=== PATIENT | male | born 1940 | race Caucasian/White ===

== ENCOUNTER 2017-02-05 11:24 | Observation (INO) | payer MEDICARE, OTHER ==
[~2017-02-05] VITALS: Ht 172.7 cm; Wt 75.0 kg
[2017-02-05] VITALS (7 sets, daily range): BP systolic 138–191; BP diastolic 74–81; PULSE 66–94; RESP 17–20; TEMP 97.6–98; O2SAT 93–99
--- NOTE | 2017-02-05 11:36 | PD ---
Physical Exam Date Seen by Provider: Feb 05, 2017 Time Seen by Provider: 11:33 Narrative 76 y/o male presents with c/o chest pain and Left arm numbness off and on 6-7 times in the last month. + Diaphoresis. No SOB. No previous Cardiac Hx. No pain currently. Last had it yesterday. Has been belching more with it. Vital signs reviewed. Patient stable. Awaiting Bed placement. Cardiac Protocols. Data Data Last Documented VS Vital Signs Date Time Temp Pulse Resp B/P Pulse Ox O2 Delivery O2 Flow Rate FiO2 02/05/17 11:27 97.6 94 20 180/81 98 MDM Medical Record Reviewed: Yes Supervised Visit with JENNI: Yes Condition: Stable Ko Grant Feb 05, 2017 11:36
[2017-02-05 12:13] LABS: AUTOMATED NEUTROPHIL # 5.5 TH/MM3 (1.8-7.7); BASOPHIL # 0.1 TH/MM3 (0-0.2); BASOPHIL % 0.8 % (0.0-2.0); EOSINOPHIL # 0.1 TH/MM3 (0-0.4); EOSINOPHIL % 1.1 % (0.0-4.0); HEMATOCRIT 43.3 % (39.0-51.0); HEMO FLAGS DIFF FINAL; LYMPH % 15.6 % (9.0-44.0); LYMPHOCYTE # 1.1 TH/MM3 (1.0-4.8); MEAN CELL VOLUME 91.7 FL (80.0-100.0); MEAN CORPUSCULAR HEMOGLOBIN 32.6 PG (27.0-34.0); MEAN CORPUSCULAR HGB CONC 35.6 % (32.0-36.0); MONO % 5.9 % (0.0-8.0); NEUT % 76.6 % (16.0-70.0); PLATELET COUNT 238 TH/MM3 (150-450); RED BLOOD COUNT 4.73 MIL/MM3 (4.50-5.90); RED CELL DISTRIBUTION WIDTH 13.7 % (11.6-17.2); WHITE BLOOD COUNT 7.2 TH/MM3 (4.0-11.0)
[2017-02-05 12:24] LABS: APTT (PATIENT) 25.8 SEC (24.3-30.1); INTERNATIONAL NORMALIZED RATIO 0.9 RATIO; PROTHROMBIN TIME - PATIENT 10.4 SEC (9.8-11.6)
[2017-02-05 12:33] LABS: ANION GAP 6 MEQ/L (5-15); AST (GOT) 17 U/L (15-37); BICARBONATE 28.1 MEQ/L (21.0-32.0); BLOOD UREA NITROGEN 15 MG/DL (7-18); CHLORIDE 101 MEQ/L (98-107); GLOMERULAR FILTRATION RATE 71 ML/MIN (>89); MAGNESIUM 2.3 MG/DL (1.5-2.5); POTASSIUM 4.6 MEQ/L (3.5-5.1); SODIUM (NA) 135 MEQ/L (136-145)
[2017-02-05 12:35] LABS: ALT (GPT) 21 U/L (12-78)
[2017-02-05 12:38] LABS: ALKALINE PHOSPHATASE 77 U/L (45-117); TOTAL BILIRUBIN ADULT 0.5 MG/DL (0.2-1.0)
[2017-02-05 12:44] LABS: CREATINE KINASE 63 U/L (39-308)
--- NOTE | 2017-02-05 14:35 | RADRPT ---
EXAM DATE/TIME: 02/05/2017 14:05 [facility] COMPARISON: No previous studies available for comparison. INDICATIONS : Chest tightness and left arm numbness. MEDICAL HISTORY : None. SURGICAL HISTORY : None. ENCOUNTER: Initial ACUITY: 1 month PAIN SCORE: 3/10 LOCATION: Left chest FINDINGS: PA and lateral views of the chest demonstrate the lungs to be symmetrically aerated without evidence of mass, infiltrate or effusion. The cardiomediastinal contours are unremarkable. 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 CONCLUSION: No acute disease. Dallas Rondon MD FACR on February 05, 2017 at 14:33 Board Certified Radiologist. This report was verified electronically.
[2017-02-05] MEDS ORDERED: ASPI81CH37 PO (15:23)
[2017-02-05] MEDS ORDERED: VITATAB56 PO (15:23)
[2017-02-05] MEDS ORDERED: LIPI20TA PO (15:23)
--- NOTE | 2017-02-05 15:53 | PD ---
HPI Chief Complaint: Chest Pain Time Seen by Provider: 15:44 Travel History International Travel<30 days: No Contact w/Intl Traveler<30days: No Traveled to known affect area: No History of Present Illness HPI Patient is a 76-year-old male presenting to emergency Department for evaluation of chest pain. Patient states over the last 4-5 weeks he's had 6-7 episodes of chest pressure with radiation to his left arm, the symptoms are accompanied by diaphoresis. Activity does not exacerbate pain patient states pain comes on at rest and when he exerted himself. He denies any nausea, vomiting, neck pain, back pain. He denies any previous stress test. Patient states he called his doctor's office this morning and was advised to come to the emergency department. His past medical history significant for hyperlipidemia and a AAA which he states they are monitoring. Patient is currently resting comfortably and is pain free. PFSH Past Medical History AAA: Yes High Cholesterol: Yes Diminished Hearing: No Tetanus Vaccination: > 5 Years Influenza Vaccination: No Past Surgical History Abdominal Surgery: Yes (hernia repair) Cholecystectomy: Yes Social History Alcohol Use: Yes (ocassionally) Tobacco Use: Yes (1 pack per day) Substance Use: No (pt denies ) Allergies-Medications (Allergen,Severity, Reaction): Coded Allergies: No Known Allergies (Unverified , 02/05/17) Reported Meds & Prescriptions Reported Meds & Active Scripts Active Reported Vitamin D-400 (Cholecalciferol) 400 Unit Tab 400 Units PO HS Aspirin Low Dose (Aspirin) 81 Mg Chew 81 Mg PO DAILY Lipitor (Atorvastatin Calcium) 20 Mg Tab 20 Mg PO HS Review of Systems Except as stated in HPI: all other systems reviewed are Neg Cardiovascular: Positive: Chest Pain or Discomfort, Diaphoresis, No: Dyspnea on exertion Respiratory: No: Shortness of Breath Gastrointestinal: No: Nausea, Vomiting, Abdominal Pain Physical Exam Narrative GENERAL: Well-developed, well-nourished, alert elderly male. Resting comfortably in no acute distress. SKIN: Warm and dry. HEAD: Atraumatic. Normocephalic. EYES: Pupils equal and round. No scleral icterus. No injection or drainage. ENT: No nasal bleeding or discharge. Mucous membranes pink and moist. NECK: Trachea midline. No JVD. CARDIOVASCULAR: Regular rate and rhythm. RESPIRATORY: No accessory muscle use. Clear to auscultation. Breath sounds equal bilaterally. GASTROINTESTINAL: Abdomen soft, non-tender, nondistended. Hepatic and splenic margins not palpable. MUSCULOSKELETAL: Extremities without clubbing, cyanosis, or edema. No obvious deformities. NEUROLOGICAL: Awake and alert. No obvious cranial nerve deficits. Motor grossly within normal limits. Five out of 5 muscle strength in the arms and legs. Normal speech. PSYCHIATRIC: Appropriate mood and affect; insight and judgment normal. Data Data Last Documented VS Vital Signs Date Time Temp Pulse Resp B/P Pulse Ox O2 Delivery O2 Flow Rate FiO2 02/05/17 15:24 73 17 99 Room Air 02/05/17 11:27 97.6 180/81 Orders Electrocardiogram (02/05/17 11:36) Ckmb (Isoenzyme) Profile (02/05/17 11:36) Complete Blood Count With Diff (02/05/17 11:36) Comprehensive Metabolic Panel (02/05/17 11:36) Magnesium (Mg) (02/05/17 11:36) Prothrombin Time / Inr (Pt) (02/05/17 11:36) Act Partial Throm Time (Ptt) (02/05/17 11:36) Troponin I (02/05/17 11:36) Chest, Pa & Lat (02/05/17 ) Admit Order (Ed Use Only) (02/05/17 15:43) Labs Laboratory Tests Test 02/05/17 11:50 White Blood Count 7.2 TH/MM3 Red Blood Count 4.73 MIL/MM3 Hemoglobin 15.4 GM/DL Hematocrit 43.3 % Mean Corpuscular Volume 91.7 FL Mean Corpuscular Hemoglobin 32.6 PG Mean Corpuscular Hemoglobin 35.6 % Concent Red Cell Distribution Width 13.7 % Platelet Count 238 TH/MM3 Mean Platelet Volume 7.3 FL Neutrophils (%) (Auto) 76.6 % Lymphocytes (%) (Auto) 15.6 % Monocytes (%) (Auto) 5.9 % Eosinophils (%) (Auto) 1.1 % Basophils (%) (Auto) 0.8 % Neutrophils # (Auto) 5.5 TH/MM3 Lymphocytes # (Auto) 1.1 TH/MM3 Monocytes # (Auto) 0.4 TH/MM3 Eosinophils # (Auto) 0.1 TH/MM3 Basophils # (Auto) 0.1 TH/MM3 CBC Comment DIFF FINAL Differential Comment Prothrombin Time 10.4 SEC Prothromb Time International 0.9 RATIO Ratio Activated Partial 25.8 SEC Thromboplast Time Sodium Level 135 MEQ/L Potassium Level 4.6 MEQ/L Chloride Level 101 MEQ/L Carbon Dioxide Level 28.1 MEQ/L Anion Gap 6 MEQ/L Blood Urea Nitrogen 15 MG/DL Creatinine 1.01 MG/DL Estimat Glomerular Filtration 71 ML/MIN Rate Random Glucose 104 MG/DL Calcium Level 9.1 MG/DL Magnesium Level 2.3 MG/DL Total Bilirubin 0.5 MG/DL Aspartate Amino Transf 17 U/L (AST/SGOT) Alanine Aminotransferase 21 U/L (ALT/SGPT) Alkaline Phosphatase 77 U/L Total Creatine Kinase 63 U/L Troponin I 0.04 NG/ML Total Protein 8.5 GM/DL Albumin 4.1 GM/DL MDM Medical Decision Making Medical Screen Exam Complete: Yes Emergency Medical Condition: Yes Medical Record Reviewed: Yes Interpretation(s) Last Impressions Chest X-Ray 02/05/17 0000 Signed Impressions: Service Date/Time: Sunday, February 05, 2017 14:05 - CONCLUSION: No acute disease. Dallas Rondon MD FACR Laboratory Tests Test 02/05/17 11:50 White Blood Count 7.2 TH/MM3 Red Blood Count 4.73 MIL/MM3 Hemoglobin 15.4 GM/DL Hematocrit 43.3 % Mean Corpuscular Volume 91.7 FL Mean Corpuscular Hemoglobin 32.6 PG Mean Corpuscular Hemoglobin 35.6 % Concent Red Cell Distribution Width 13.7 % Platelet Count 238 TH/MM3 Mean Platelet Volume 7.3 FL Neutrophils (%) (Auto) 76.6 % Lymphocytes (%) (Auto) 15.6 % Monocytes (%) (Auto) 5.9 % Eosinophils (%) (Auto) 1.1 % Basophils (%) (Auto) 0.8 % Neutrophils # (Auto) 5.5 TH/MM3 Lymphocytes # (Auto) 1.1 TH/MM3 Monocytes # (Auto) 0.4 TH/MM3 Eosinophils # (Auto) 0.1 TH/MM3 Basophils # (Auto) 0.1 TH/MM3 CBC Comment DIFF FINAL Differential Comment Prothrombin Time 10.4 SEC Prothromb Time International 0.9 RATIO Ratio Activated Partial 25.8 SEC Thromboplast Time Sodium Level 135 MEQ/L Potassium Level 4.6 MEQ/L Chloride Level 101 MEQ/L Carbon Dioxide Level 28.1 MEQ/L Anion Gap 6 MEQ/L Blood Urea Nitrogen 15 MG/DL Creatinine 1.01 MG/DL Estimat Glomerular Filtration 71 ML/MIN Rate Random Glucose 104 MG/DL Calcium Level 9.1 MG/DL Magnesium Level 2.3 MG/DL Total Bilirubin 0.5 MG/DL Aspartate Amino Transf 17 U/L (AST/SGOT) Alanine Aminotransferase 21 U/L (ALT/SGPT) Alkaline Phosphatase 77 U/L Total Creatine Kinase 63 U/L Troponin I 0.04 NG/ML Total Protein 8.5 GM/DL Albumin 4.1 GM/DL Vital Signs Date Time Temp Pulse Resp B/P Pulse Ox O2 Delivery O2 Flow Rate FiO2 02/05/17 15:24 73 17 99 Room Air 02/05/17 11:27 97.6 94 20 180/81 98 Differential Diagnosis ACS versus USA versus metabolic abnormality versus AAA versus other Narrative Course Patient is 76-year-old male presenting for evaluation of chest pain. Patient's vital signs are stable, IV access established, patient placed on telemetry monitoring and continuous pulse oximetry. Patient was protocoled in triage, labs and imaging were reviewed. Patient is currently pain-free. CBC is unremarkable Chemistry with no acute findings Troponin 0.04 Coags are unremarkable Chest x-ray read by radiologist shows no acute disease. EKG read by my attending physician shows no acute ST changes. Ultrasound the aorta ordered and pending. Ultrasound of the aorta read by radiologist reads distal aorta is not well visualized, no evidence of aneurysm in visualized portions. Patient placed in the chest pain center, he is agreeable. Admitting orders place. Diagnosis Primary Impression: Chest pain Qualified Code: R07.9 - Chest pain, unspecified type Admitting Information Admitting Physician Requests: Observation Condition: Stable Leslee Abbasi Feb 05, 2017 15:53
[2017-02-05] MEDS ORDERED: NITROGLYCERIN 0.4 MG SL 25 TABS/BTL SL PRN (16:30)
[2017-02-05] MEDS ORDERED: ACETAMINOPHEN 500 MG CPLT PO PRN (16:30)
[2017-02-05] MEDS ORDERED: ONDANSETRON HCL 4 MG/2 ML VIAL IV PRN (16:30)
[2017-02-05] MEDS ORDERED: SODIUM CHLORIDE 0.9% FLUSH 10 ML FLUSH IV FLUSH PRN (16:30)
--- NOTE | 2017-02-05 17:39 | RADRPT ---
EXAM DATE/TIME: 02/05/2017 16:27 [facility] COMPARISON: No previous studies available for comparison. INDICATIONS : History of aneurysm. MEDICAL HISTORY : Aneurysm, abdominal. Hypercholesterolemia. SURGICAL HISTORY : Cholecystectomy. Hernia repair. ENCOUNTER: Initial ACUITY: > 1 year PAIN SCORE: 0/10 LOCATION: Abdomen. MEASUREMENTS: (AP x TRANSVERSE) PROXIMAL: 2.4 x 3.0 cm MID: 2.7 x 3.4 cm DISTAL: Non visualized. RIGHT ILIAC: Non visualized. LEFT ILIAC: Non visualized. FINDINGS: AORTA: No significant atherosclerotic disease. Doppler evaluation within normal limits. IVC: Within normal limits. CONCLUSION: Distal aorta is not well-visualized. No evidence of aneurysm in visualized portions Travis Morris MD on February 05, 2017 at 17:36 Board Certified Radiologist. This report was verified electronically.
--- NOTE | 2017-02-05 18:24 | HHI.HP ---
HPI Primary Care Physician Dr. 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 Called his PCP with symptoms and directed to come to ER. Onset 56 weeks ago. Location substernal described as a gradual pressure with radiation to left arm. Duration 35 minutes. Nonexertional, always occurring at rest. Associated symptoms include shortness of breath and diaphoresis. Denies nausea or vomiting. No known precipitating or relieving factors. Review of Systems General: No fatigue, fever, chills, recent use of antibiotics, or recent illness. Has been in his general state of health. HEENT: No GOSS, no vision changes CV: As stated above. No current chest pain or pressure. Denies intermittent leg pain with ambulation. Reports occasional nocturnal leg cramping. RESP: No SOB GI: No nausea, vomiting, bowel changes, diarrhea, constipation, pain, melena, or blood in the stool. No change in appetite, no unintentional weight gain or weight loss. : No dysuria, urgency, or frequency. 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 Pozo, reports size of AAA 3cm-stable and unchanged) Past Surgical History Cholecystectomy, hernia repair Reported Medications Active Reported Vitamin D-400 (Cholecalciferol) 400 Unit Tab 400 Units PO HS Aspirin Low Dose (Aspirin) 81 Mg Chew 81 Mg PO DAILY Lipitor (Atorvastatin Calcium) 20 Mg Tab 20 Mg PO HS Fish Oil daily Active Ordered Medications Current Medications Medications (Trade) Dose Ordered Sig/Verito Route Start Time Stop Time Status Last Admin (NS Flush) 2 ml UNSCH PRN IV FLUSH 02/05/17 16:30 (NS Flush) 2 ml BID IV FLUSH 02/05/17 21:00 (Tylenol) 500 mg Q4H PRN PO 02/05/17 16:30 (Zofran Inj) 4 mg Q6H PRN IV 02/05/17 16:30 (Nitrostat Sl) 0.4 mg Q5M PRN SL 02/05/17 16:30 (Aspirin) 325 mg DAILY PO 02/06/17 09:00 Family History Noncontributory for early onset cardiovascular disease Social History No known hypertension or diabetes. Taken appropriate statin therapy for PVD. Lifelong smoker since age 15, currently smokes 25 cigarettes/daily. Drinks 16 beers/weekly. Denies any illicit drug use. Retired staff software engineer. , endorses staying active. Past cardiac testing None. Denies every having a cardiac catheterization. Physical Exam Vital Signs Vital Signs Date Time Temp Pulse Resp B/P Pulse Ox O2 Delivery O2 Flow Rate FiO2 02/05/17 16:00 97.8 66 17 140/74 99 Room Air 02/05/17 15:24 73 17 99 Room Air 02/05/17 11:27 97.6 94 20 180/81 98 Physical Exam GENERAL: Alert WN, WD, NAD, male HEAD: NC, AT NECK: Supple, no masses, trachea midline CV: RRR, no murmur, rub, gallop, no JVD, S1-S2 no S3-S4. No carotid bruits. RESP: Rhonchi throughout bilateral, intermittent, faint, expiratory wheeze. No crackles. Symmetrical chest rise, nonlabored, able to speak in full sentences ABD: Soft, NT, ND, no masses, positive bowel tones BACK: No scoliosis EXT: Pulses +2 PT and PP, no dependent edema MS: Normal tone 4 extremities, nontender, full range of motion, right first and second digit contracture of proximal interphalangeal joints NEURO: CN II through CN XII grossly intact, motor strength 5/5 PSYCH: A+O 3, appropriate speech, appropriate mood and affect, insight and judgment SKIN: Normal turgor, normal texture, solar damage, no lesions, no rashes, sluggish cap refill, decrease bilateral lower extremity hair distribution Laboratory Laboratory Tests Test 02/05/17 11:50 White Blood Count 7.2 Red Blood Count 4.73 Hemoglobin 15.4 Hematocrit 43.3 Mean Corpuscular Volume 91.7 Mean Corpuscular Hemoglobin 32.6 Mean Corpuscular Hemoglobin 35.6 Concent Red Cell Distribution Width 13.7 Platelet Count 238 Mean Platelet Volume 7.3 Neutrophils (%) (Auto) 76.6 Lymphocytes (%) (Auto) 15.6 Monocytes (%) (Auto) 5.9 Eosinophils (%) (Auto) 1.1 Basophils (%) (Auto) 0.8 Neutrophils # (Auto) 5.5 Lymphocytes # (Auto) 1.1 Monocytes # (Auto) 0.4 Eosinophils # (Auto) 0.1 Basophils # (Auto) 0.1 CBC Comment DIFF FINAL Differential Comment Prothrombin Time 10.4 Prothromb Time International 0.9 Ratio Activated Partial 25.8 Thromboplast Time Sodium Level 135 Potassium Level 4.6 Chloride Level 101 Carbon Dioxide Level 28.1 Anion Gap 6 Blood Urea Nitrogen 15 Creatinine 1.01 Estimat Glomerular Filtration 71 Rate Random Glucose 104 Calcium Level 9.1 Magnesium Level 2.3 Total Bilirubin 0.5 Aspartate Amino Transf 17 (AST/SGOT) Alanine Aminotransferase 21 (ALT/SGPT) Alkaline Phosphatase 77 Total Creatine Kinase 63 Troponin I 0.04 Total Protein 8.5 Albumin 4.1 Result Diagram: 02/05/17 1150 02/05/17 1150 Imaging Last Impressions Chest X-Ray 02/05/17 0000 Signed Impressions: Service Date/Time: Sunday, February 05, 2017 14:05 - CONCLUSION: No acute disease. Dallas Rondon MD FACR Aorta Ultrasound 02/05/17 0000 Signed Impressions: Service Date/Time: Sunday, February 05, 2017 16:27 - CONCLUSION: Distal aorta is not well-visualized. No evidence of aneurysm in visualized portions Travis Morris MD Course EKG First-degree AV block, normal sinus rhythm, normal axis, minimal ST depression in V3-V4, no specific t wave changes Assessment and Plan Assessment and Plan #1 Chest painadmitted to chest pain center. Will rule out with 3 sets of EKGs , cardiac enzymes, and monitor overnight. Will be seen and evaluated by Dr. Tika Hilliard in a.m. Discussed the likelihood of further cardiac stress testing in a.m. if he rules out with lab and EK, Patient and , who is at bedside, agreeable to plan of care. #2 AAA-stable, no dissection. Discussed importance of tight blood pressure control, continue statin therapy, smoking sensation, and following up with Dr. Pozo as previously instructed. #3 Tobacco usestrongly encouraged and stressed the importance of tobacco sensation. Encouraged him to quit smoking. #4 PVD-continue statin, smoking cessation Tyra Cage Feb 05, 2017 18:24
[2017-02-05] MEDS: SODIUM CHLORIDE 0.9% FLUSH 10 ML FLUSH IV FLUSH SCH (20:27)
[2017-02-05] MEDS ORDERED: ATORVASTATIN 20 MG TAB PO SCH (21:00)
[2017-02-06 00:38] VITALS: BP 152/70; PULSE 83; RESP 18; TEMP 97.7; O2SAT 95
[2017-02-06 03:30] VITALS: BP 117/58; PULSE 85; RESP 17; TEMP 97.8; O2SAT 94
[2017-02-06 08:13] VITALS: BP 138/67; PULSE 88; RESP 20; TEMP 97.9; O2SAT 96
[2017-02-06 08:15] VITALS: PULSE 87
[2017-02-06] MEDS: SODIUM CHLORIDE 0.9% FLUSH 10 ML FLUSH IV FLUSH SCH (08:17)
--- NOTE | 2017-02-06 08:24 | EKG ---
Date Performed: 02/05/2017 Time Performed: 21:36:44 PTAGE: 76 years EKG: Sinus rhythm WITH FIRST DEGREE AV BLOCK NONSPECIFIC ST & T-WAVE ABNORMALITY ABNORMAL ECG Since PREVIOUS TRACING , no significant change noted PREVIOUS TRACIN02/05/2017 21.01 DOCTOR: Tika Hilliard Interpretating Date/Time 02/06/2017 08:22:57
--- NOTE | 2017-02-06 08:25 | EKG ---
Date Performed: 02/05/2017 Time Performed: 17:53:57 PTAGE: 76 years EKG: Sinus rhythm WITH FIRST DEGREE AV BLOCK MODERATE INTRAVENTRICULAR CONDUCTION DELAY ABNORMAL ECG Since PREVIOUS TRACING , no significant change noted PREVIOUS TRACIN02/05/2017 11.40 DOCTOR: Tika Hilliard Interpretating Date/Time 02/06/2017 08:24:38
--- NOTE | 2017-02-06 08:25 | EKG ---
Date Performed: 02/05/2017 Time Performed: 21:01:00 PTAGE: 76 years EKG: SUPRAVENTRICULAR RHYTHM MODERATE INTRAVENTRICULAR CONDUCTION DELAY Artifact PREVIOUS TRACING : 02/05/2017 17.53 DOCTOR: Tika Hilliard Interpretating Date/Time 02/06/2017 08:24:06
--- NOTE | 2017-02-06 08:28 | EKG ---
Date Performed: 02/05/2017 Time Performed: 11:40:43 PTAGE: 76 years EKG: Sinus rhythm WITH FIRST DEGREE AV BLOCK NONSPECIFIC T-WAVE ABNORMALITY ABNORMAL ECG Since PREVIOUS TRACING , no significant change noted PREVIOUS TRACIN07/05/1993 10.51 DOCTOR: Tika Hilliard Interpretating Date/Time 02/06/2017 08:26:34
[2017-02-06] MEDS ORDERED: ASPIRIN 325 MG TAB PO SCH (09:00)
[2017-02-06] MEDS ORDERED: REGADENOSON INJ 0.4 MG/5 ML SYR ONE (09:29)
[2017-02-06] MEDS ORDERED: AMINOPHYLLINE INJ 250 MG/10 ML VIAL ONE (10:42)
--- NOTE | 2017-02-06 11:41 | RADRPT ---
EXAM DATE/TIME: 02/06/2017 09:25 [facility] COMPARISON: No previous studies available for comparison. INDICATIONS : Chest pain with left arm pain. Angina. DOSE: 26 mCi Tc99m Myoview at stress. 8.1 mCi Tc99m Myoview at rest. 0.4 mg Lexiscan STRESS SYMPTOMS: Dyspnea and chest pressure. MEDICATIONS: 1.) 100 mg Aminophylline IV EJECTION FRACTION: 67% MEDICAL HISTORY : Aneurysm, abdominal. Peripheral vascular disease. Hypertension. Smoker. SURGICAL HISTORY : Umbilical hernia repair. Abdominal aortic aneurysm repair. Cholecystectomy. ENCOUNTER: Initial ACUITY: 1 day PAIN SCALE: 0/10 LOCATION: chest TECHNIQUE: The patient underwent pharmacologic stress with infusion of prescribed dose. Continuous ECG tracing was monitored during stress. Gated SPECT imaging was performed after stress and conventional SPECT i maging was performed at rest. The examination was performed on a SPECT/CT scanner, both attenuation and non-corrected datasets were reviewed. FINDINGS: DISTRIBUTION: The maximum perfused segment at stress is in the anterior lateral wall. PERFUSION STUDY: There is essentially absent perfusion involving the inferior wall on the stress images. There is some mild redistribution on the rest images. Otherwise, the rest of the ventricle demonstrates good perfu radha. GATED STUDY: There is intact wall motion and thickening without hypokinetic or dyskinetic segments. CONCLUSION: 1. There is essentially absent perfusion involving the inferior wall on the stress images. There is a suggestion of some mild redistribution of the inferior wall on the rest images. This may indicate so me mild ischemic changes. No wall motion abnormalities noted involving the inferior wall. A 2. Otherwise, the rest of examination is unremarkable. RISK CATEGORY: Intermediate Thaddeus Hdez MD on February 06, 2017 at 11:35 Board Certified Radiologist. This report was verified electronically.
--- NOTE | 2017-02-06 12:08 | HHI.DCPOC ---
Discharge Care Plan Diagnosis: (1) Atypical chest pain (2) Peripheral vascular disease (3) Tobacco abuse Goals to Promote Your Health * To prevent worsening of your condition and complications * To maintain your health at the optimal level Directions to Meet Your Goals Take your medications as prescribed Follow your dietary instruction Follow activity as directed Keep your appointments as scheduled Take your immunizations and boosters as scheduled If your symptoms worsen call your PCP, if no PCP go to Urgent Care Center or Emergency Room Smoking is Dangerous to Your Health. Avoid second hand smoke Call the 24-hour hour crisis hotline for domestic abuse at Tyra Cage Feb 06, 2017 12:08
--- NOTE | 2017-02-06 12:27 | HHI.DS ---
Discharge Summary Admission Date Feb 05, 2017 at 15:44 Discharge Date: Feb 06, 2017 Admitting Diagnosis CHEST PAIN Procedures Last Impressions Myocardial Perfusion Scan Nuc Med 02/06/17 0000 Signed Impressions: Service Date/Time: Monday, February 06, 2017 09:25 - CONCLUSION: 1. There is essentially absent perfusion involving the inferior wall on the stress images. There is a suggestion of some mild redistribution of the inferior wall on the rest images. This may indicate some mild ischemic changes. No wall motion abnormalities noted involving the inferior wall. A 2. Otherwise, the rest of examination is unremarkable. RISK CATEGORY: Intermediate Thaddeus Hdez MD Chest X-Ray 02/05/17 0000 Signed Impressions: Service Date/Time: Sunday, February 05, 2017 14:05 - CONCLUSION: No acute disease. Dallas Rondon MD FACR Aorta Ultrasound 02/05/17 0000 Signed Impressions: Service Date/Time: Sunday, February 05, 2017 16:27 - CONCLUSION: Distal aorta is not well-visualized. No evidence of aneurysm in visualized portions Travis Morris MD Brief History 76-year-old male history of PVD and tobacco abuse presented to ER for further evaluation intermittent chest pressure 6 weeks. Ruled out with cardiac enzymes and EKGs. Chemical stress test completed no findings of redistribution at stress. Chemical test conclusion suggests mild redistribution at rest and absent perfusion involving the inferior wall on stress images. Discharge with follow up with PCP, instructed to request cardiology follow up referral. CBC/BMP: 02/05/17 1150 02/05/17 1150 Significant Findings Laboratory Tests Test 02/05/17 11:50 Neutrophils (%) (Auto) 76.6 % (16.0-70.0) Sodium Level 135 MEQ/L (136-145) Estimat Glomerular Filtration 71 ML/MIN (>89) Rate Total Protein 8.5 GM/DL (6.4-8.2) Pt Condition on Discharge: Good Discharge Disposition: Discharge Home Discharge Instructions DIET: Follow Instructions for: Heart Healthy Diet Activities you can perform: Regular-No Restrictions Additional Information Follow up with PCP, keeping tomorrow's appointment. Instructed to take results of chemical stress test with him to exam for cardiology referral. Strongly encouraged tobacco cessation. Discussed chest discomfort maybe due to long history of tobacco use and he may need further pulmonary studies as outpatient. Tyra Cage Feb 06, 2017 12:27
--- NOTE | 2017-02-06 16:47 | TR ---
Date Performed: 02/06/2017 Time Performed: 10:07:39 DOCTOR: Tika Hilliard DRUG LIST: CLINICAL HISTORY: REASON FOR TEST: CP REASON FOR ENDING: OBSERVATION: CONCLUSION: Lexiscan stress test was performed under standard four minute protocol. Radionuclid e was injected one minute prior to ending the test. No electrocardiographic abormalities were present to suggest ischemia. Nuclear imaging and interpretation are pending. COMMENTS:
== END 2017-02-06 13:27 | disposition home or self-care (01) ==
LOC: NEPC 11:24 → NEDA 15:44 → NEPGCP 17:58
PROVIDERS: ADMIT Internal Medicine Cardiovascular Disease; ATTEND Internal Medicine Cardiovascular Disease
DX: R07.9 Chest pain, unspecified (principal); R20.0 Anesthesia of skin; R61 Generalized hyperhidrosis; I71.4 Abdominal aortic aneurysm, without rupture; E78.00 Pure hypercholesterolemia, unspecified; F17.210 Nicotine dependence, cigarettes, uncomplicated; Z79.82 Long term (current) use of aspirin; I74.8 Embolism and thrombosis of other arteries; I73.9 Peripheral vascular disease, unspecified; I44.0 Atrioventricular block, first degree; R94.31 Abnormal electrocardiogram [ECG] [EKG]
CPT/HCPCS: 71020; 76775; 78452; 80053; 82550; 83735; 84484; 85025; 85610; 85730; 93005; 93017; 99285; A9502; G0378; J0280; J2785

== ENCOUNTER 2017-05-22 07:53 | Day surgery (SDC) | payer OTHER ==
[~2017-05-22] VITALS: Ht 172.7 cm; Wt 74.0 kg
[~2017-05-22 07:53] MED LIST: ASPI81CH6 PO; LIPI20TA PO; VITATAB56 PO
[2017-05-22] MEDS ORDERED: IOHEXOL 350 MG/ML 50 ML BTL (for Cath Lab) OTHER ONE (07:54)
[2017-05-22] MEDS ORDERED: NS 1000P @30 MLS/HR (KVO) IV SCH (08:00)
[2017-05-22 08:18] VITALS: BP 142/80; PULSE 84; RESP 16; TEMP 97.6; O2SAT 95
[2017-05-22] MEDS ORDERED: METO50TA PO (08:21)
[2017-05-22] MEDS ORDERED: ATOR10TA15 PO (08:21)
[2017-05-22] MEDS ORDERED: ISOS10TA3 PO (08:21)
[2017-05-22] MEDS ORDERED: OMEGCAP PO (08:21)
[2017-05-22] MEDS ORDERED: ZANT150T2 PO (08:21)
[2017-05-22] MEDS ORDERED: OMEP20TA93 PO (08:21)
[2017-05-22 08:34] LABS: AUTOMATED NEUTROPHIL # 4.7 TH/MM3 (1.8-7.7); BASOPHIL # 0.1 TH/MM3 (0-0.2); BASOPHIL % 0.8 % (0.0-2.0); EOSINOPHIL # 1.2 TH/MM3 (0-0.4); EOSINOPHIL % 15.1 % (0.0-4.0); HEMO FLAGS DIFF FINAL; LYMPH % 17.5 % (9.0-44.0); LYMPHOCYTE # 1.4 TH/MM3 (1.0-4.8); MEAN CORPUSCULAR HEMOGLOBIN 32.6 PG (27.0-34.0); MEAN CORPUSCULAR HGB CONC 35.5 % (32.0-36.0); MONO % 7.8 % (0.0-8.0); NEUT % 58.8 % (16.0-70.0); PLATELET COUNT 215 TH/MM3 (150-450); RED BLOOD COUNT 4.45 MIL/MM3 (4.50-5.90); RED CELL DISTRIBUTION WIDTH 14.3 % (11.6-17.2); WHITE BLOOD COUNT 7.9 TH/MM3 (4.0-11.0)
[2017-05-22 08:47] LABS: APTT (PATIENT) 25.7 SEC (24.3-30.1); INTERNATIONAL NORMALIZED RATIO 0.9 RATIO; PROTHROMBIN TIME - PATIENT 10.2 SEC (9.8-11.6)
[2017-05-22 08:52] LABS: BICARBONATE 27.9 MEQ/L (21.0-32.0); POTASSIUM 4.3 MEQ/L (3.5-5.1)
[2017-05-22] MEDS ORDERED: MIDAZOLAM HCL 2 MG/2 ML VIAL ONE (11:44)
[2017-05-22] MEDS ORDERED: HEPARIN-NS/PF INJ 1,000 ML ONE (11:44)
[2017-05-22] MEDS ORDERED: VERAPAMIL HCL 5 MG/2 ML VIAL ONE (12:00)
[2017-05-22] MEDS ORDERED: NITROGLYCERIN INJ 5 ML ONE (12:00)
[2017-05-22] MEDS ORDERED: HEPARIN SODIUM - IV 10,000 UNITS/10 ML VIAL ONE (12:00)
--- NOTE | 2017-05-22 12:45 | CATHPROC ---
[facility] HIS Report Study Information Study Number Admission Scheduled Start Study Start [id number] May 22 2017 7:53AM 05/22/2017 May 22 2017 11:37AM [place] Service Cardiac Catheterization Admit Source Facility Department Emergency department [facility] - Physical Medicine Specialist Physician and Clinical Staff Initial Mayank Waite Math Specialist Dejuan Hussein RN Math Specialist Freddie Black RN Recorder Marino Vargas,RT(R) Recorder Josh Bob RCIS(BS) Scrub Sunshine Santana,TA TECH2 Procedures Performed Procedure Location (Site) Vessel Name Coronary Angiograms LCA Left Coronary Coronary Angiograms RCA Right Coronary L Heart Cath Equipment Time Risk Management Manager Description Size Mfg Part Number Used/Scraped TRANSDUCER, TRUWAVE [id number] 11:57 RAYA GENAO * Used W/STOCKCOCK *[id number] [id number] *[id number] [id number] *[id number] 11:57 RecordSled PACK, CCL CUSTOM * Used *[id number] 11:57 RecordSled SUPPORT, ARTERIAL ADULT [id number] *[id number] Used BAND, RADIAL COMPRESSION TR [id number] 12:33 [email or web address] MEDICAL 24CM Used SHORT 24 *[id number] 11:57 [employer] WIRE, EXCHANGE 260CM 3MMJ 260CM Used *[id number] 11:57 NAMIC MANIFOLD, 4 PORT * Used *[id number] 11:57 [employer]ED OMNIPAQUE, 350 MG, 150ML 150ML [id number] Used [id number] 11:57 [employer] BLANKET,WARM AIR CCL * Used *[id number] SHEATH, FR6 TRANSRADIAL RM*[id number] 11:57 VONTRAVEL FR 6 Used SLENDER 10CM *[id number] History: Allergies Allergy Reaction No Known Allergies History: Risk Factors Family History of Hypertension Dyslipidemia Previous VT Previous Heart Failure Premature CAD No Yes No No No Prior Valve Prior PCI Prior CABG Surgery No No No Cerebrovascular Peripheral Artery Chronic Lung On Dialysis Diabetes Disease Disease Disease No No No No No History: Stress Tests Stress or Imaging Studies Performed Yes Standard Exercise Stress Test No Stress Echo No Stress Test SPECT Stress Test SPECT Result Stress Test SPECT Ischemia Risk/Extent Yes Positive Intermediate Stress Test CMR No Cardiac CTA Coronary Calcium Score No No History: Other Current Smoker Method Packs a Day Years Used Pack Years Yes Cigarettes 1 60 60 Labs Hgb (g/dl) Hct (%) WBC (l/cumm) Platelets (thousands) 11.60-17.00 35.00-51.00 4.00-11.00 150.00-450.00 14.5 41 7.9 215 Glucose (mg/dl) BUN (mg/dl) Creatinine (mg/dl) BUN:Creatinine (1:x) 74.00-106.00 7.00-18.00 0.50-1.30 10.00-20.00 112 23 1.0 23 Na (meq/l) K (meq/l) Cl (meq/l) CO2 (mmol/L) 136.00-145.00 3.50-5.10 98.00-107.00 21.00-32.00 140 4.3 104 27.9 PT (sec) INR (PTT:PT) 9.80-11.60 0.90-1.10 10.2 0.9 CPK-MB (ng/ML) 0.50-3.60 Not Drawn Medication Medication Total Dose (Bolus/Oral) Medication Total Dosage/Unit 1% XYLOCAINE 3 mL FENTANYL 25 mcg VERSED 0.5 mg Medications (Bolus/Oral) Medication Time Given Dosage/Unit Administered By Reason 05/22/2017 12:21:14 VERSED 0.5 mg Dejuan Hussein 0.5 mg VERSED given in lab by Dejuan Hussein RN in Left Antecubital via Peripheral IV. Ordered by Mayank Huerta 05/22/2017 12:21:22 FENTANYL 25 mcg Dejuan Hussein 25 mcg FENTANYL given in lab by Dejuan Hussein RN in Left Antecubital via Peripheral IV. Ordered by Mayank Quigley 05/22/2017 12:21:34 1% XYLOCAINE 3 mL Mayank Quigley 3 mL 1% XYLOCAINE given in lab by Mayank Quigley in Right Radial via Subcutaneous. Medication (Drip) Medication Time Given Dosage/Unit Concentration/Unit Diluent (ml) Solution 05/22/2017 11:42:49 IV Solutions 0 mL (IV) 500 NaCl .9 AM Patient arrived on IV Solutions given by Mayank Quigley in Left Antecubital via Peripheral IV. P ump/Drip Flow = 20 ml/hr using NaCl .9. Ordered by Mayank Quigley Reason: As per physicians verbal order. Initial Case Assessment Cardiovascular HR Rhythm NIBP Chest Pain 75 sr 103/66 0 Edema Present Skin color Skin None Normal Warm Dry Circulatory - Right Pulses Radial 2 Scale (0,1,2,3,4,d) Circulatory - Left Pulses Radial Scale (0,1,2,3,4,d) Neurological State Oriented to time-place- Alert Moves all extremities person Respiration - General Respiration Rate SpO2 (%) O2 (lpm) (B/min) 18 99 0 Final Case Assessment Cardiovascular HR Rhythm NIBP Chest Pain 79 sr 133/67 0 Edema Present Skin color Skin None Normal Warm Dry Circulatory - Right Pulses Radial 2 Scale (0,1,2,3,4,d) Circulatory - Left Pulses Radial Scale (0,1,2,3,4,d) Neurological State Oriented to time-place- Alert Moves all extremities person Respiration - General Respiration Rate SpO2 (%) O2 (lpm) (B/min) 15 95 0 Chronological Log Time Study Chronological Log 11:40:39 Patient arrived via Bed. Positive Allens test performed by David Bermudez. 11:40:41 Patient Name, D.O.B, / Armband Verified By R.N. 11:40:42 Consent signed by the physician and the patient and verified by the Physical Medicine Specialist staff. 11:40:43 Pre-op and post- op instructions given; patient acknowledges understanding of instructions. 11:41:25 Verbal Stimulation=2 Physical Stimulation=2 Airway=2 Respiration=2 TOTAL=8. (0=absent, 1=li mited, 2=present) 11:41:40 Patient has been NPO for More than 6Hrs. 11:41:41 Skin Breakdown-none present per patient. 11:42:10 A # 20 IV was noted in the Antecubital (left). Grade = 0 Patient arrived on IV Solutions given by Mayank Quigley in Left Antecubital via Peripheral IV. Pump/Drip Flow = 20 11:42:49 ml/hr using NaCl .9. Ordered by Mayank Quigley Reason: As per physicians verbal order. 11:43:16 History and physical on the chart or being dictated. Vitals capture started with the following parameters, Patient=Adult, Interval=5 min, Initial Pr snxcrc=365 mmHg, 11:47:13 Deflation Rate=5 mmHg, Cuff placed on Left Arm 11:47:13 Reference ECG taken Assessment: Initial Case, HR=75 BPM, Rhythm=sr, EJZS=370/66 mmhg, Chest Pain=0, Edema=None, Col or=Normal, Skin = Warm, Dry Right Pulses: Radial=2 11:47:17 Left Pulses: Eric Ped=d, Femoral=d Neurological: State=Alert, Ox3, HERNANDEZ Respiration: Resp=18 B/min, SpO2=99 %, O2=0 lpm 11:47:52 HR=77 bpm, AUJT=379/66 mmhg, Resp=13 B/min, Jennings=2 11:53:13 HR=74 bpm, DTFG=368/82 mmhg, SpO2=97.0 %, Resp=11 B/min, Jennings=2 11:56:35 Left groin and right radial prepped with 2% chlorhexidine, and draped after a 3 min. waitin g time. 11:57:52 HR=71 bpm, GGSZ=089/63 mmhg, SpO2=99.0 %, Resp=20 B/min, Pain=0, Vinayak=10, Jennings=2 12:02:43 Pressure channel 1 zeroed. 12:02:49 HR=72 bpm, YRZD=568/80 mmhg, SpO2=97.0 %, Resp=7 B/min, Pain=0, Vinayak=10, Jennings=2 12:07:46 HR=72 bpm, GARF=749/66 mmhg, SpO2=98.0 %, Resp=10 B/min, Pain=0, Vinayak=10, Jennings=2 12:12:49 HR=74 bpm, CIHW=923/68 mmhg, SpO2=97.0 %, Resp=16 B/min, Pain=0, Vinayak=10, Jennings=2 12:14:02 MD arrived. 12:17:50 HR=73 bpm, ANXK=696/70 mmhg, SpO2=97.0 %, Resp=14 B/min, Pain=0, Vinayak=10, Jennings=2 Time Out. Correct patient, correct procedure, correct physician, power injector not loaded with contrast with surgical 12:21:12 team present. Time Out Concurred by MD and individual staff in procedure. 12:21:13 Case Start 12::14 0.5 mg VERSED given in lab by Dejuan Hussein, RN in Left Antecubital via Peripheral IV. Ord ered by Mayank Quigley. 25 mcg FENTANYL given in lab by Dejuan Hussein, RN in Left Antecubital via Peripheral IV. Order ed by Mayank Quigley 12:: G. 12::34 3 mL 1% XYLOCAINE given in lab by Mayank Quigley in Right Radial via Subcutaneous. 12::33 Access site was Right Radial Artery. A SHEATH, FR6 TRANSRADIAL SLENDER 10CM FR 6 was advanced into the Radial (right) using the Perc utaneous 12::43 technique. 12:22:51 HR=74 bpm, RPLC=374/76 mmhg, SpO2=96.0 %, Resp=15 B/min, Pain=0, Vinayak=10, Jennings=2 A JR 4.0 INFINITI CATHETER FR 5 was advanced over a wire. OMNIPAQUE, 350 MG, 150ML 150ML was us ed for 12:24:01 injections. Recorded Pressure: LV, HR=88, Condition=Condition 1 12:25:18 (Left Ventricle) LV 106/3/6 Recorded Pressure: LV, Ao, HR=85, Condition=Condition 1 12:25:32 (Left Ventricle) LV 112/2/6, (Aorta) Ao 110/58/80 12:26:12 The RCA was injected and visualized at various angles. OMNIPAQUE, 350 MG, 150ML 150ML used . After removing the current catheter a JL 3.5 INFINITI CATHETER FR 5 was advanced over a WIRE, E XCHANGE 260CM 12:26:32 3MMJ 260CM. 12:27:52 HR=84 bpm, UQPY=660/68 mmhg, SpO2=94.0 %, Resp=15 B/min, Pain=0, Vinayak=10, Jennings=2 12:29:20 The LCA was injected and visualized at various angles. OMNIPAQUE, 350 MG, 150ML 150ML used . Recorded Pressure: Ao, HR=80, Condition=Condition 1 12:30:50 (Aorta) Ao 112/55/77 12:32:46 Catheter was removed 12:32:49 HR=78 bpm, AFHK=144/67 mmhg, SpO2=93.0 %, Resp=11 B/min, Pain=0, Vinayak=10, Jennings=2 12:33:39 Case End Radial Compression Device Used. 12 mLs of air placed in BAND, RADIAL COMPRESSION TR SHORT 24 24 CM. Affected 12:33:48 hand 95 % O2 saturation. Assessment: Final Case, HR=79 BPM, Rhythm=sr, AXPP=945/67 mmhg, Chest Pain=0, Edema=None, Color =Normal, Skin = Warm, Dry Right Pulses: Radial=2 12:34:02 Left Pulses: Eric Ped=d, Femoral=d Neurological: State=Alert, Ox3, HERNANDEZ Respiration: Resp=15 B/min, SpO2=95 %, O2=0 lpm 12:34:20 Catheter(s) removed without difficulty 12:34:28 Sterile dressing applied to site 12:34:29 No case complications noted. 12:34:29 Cine recording checked. 12:34:33 Bedside Report will be given. 12:34:34 Contrast Scanned 12:34:35 Verbal Stimulation=2 Physical Stimulation=2 Airway=2 Respiration=2 TOTAL=8. (0=absent, 1=l imited, 2=present) 12:34:45 A Left Heart Cath was performed. 12:37:50 HR=75 bpm, USHJ=950/71 mmhg, SpO2=94.0 %, Resp=15 B/min, Pain=0, Vinayak=10, Jennings=2 12:42:00 Patient moved to stretcher 12:42:24 Vitals capture stopped. End Study - Contrast Media Used In Study Contrast Total Opened (mL) Total Used (mL) Total Wasted (mL) Omnipaque 30 30 0 End Study - Maximum Contrast Load Max Contrast Load (mL) 370.0 End Study - Radiation Exposure Fluoro Time (minutes) 1.8 End Study - Patient Disposition Complications Transferred To Interventional Outcome No Physical Medicine Specialist Holding No attempt made
[2017-05-22] MEDS ORDERED: MISC INFORMATION XX ONE (13:30)
--- NOTE | 2017-05-23 11:03 | EKG ---
Date Performed: 05/22/2017 Time Performed: 08:30:10 PTAGE: 76 years EKG: Possible ectopic atrial rhythm. Inferior T wave changes are nonspecific Borderline ECG PREVIOUS TRACING : 02/05/2017 21.36 DOCTOR: Buck Wayne Interpretating Date/Time 05/23/2017 11:01:41
--- NOTE | 2017-05-23 23:42 | MA ---
Cc: MAYANK OLIVA DO DATE: May 22, 2017 PROCEDURE Left heart catheterization, coronary angiogram, moderate sedation 15 minutes. PREPROCEDURE DIAGNOSIS Chest pain, abnormal stress test. POSTPROCEDURE DIAGNOSIS Coronary artery disease for medical management. MEDICATIONS 1. Versus 0.5 mg. 2. Fentanyl 25 mcg. 3. Verapamil 2.5 mg. 4. Nitro 200 mcg. 5. Heparin 3000 units. 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 He was seen in the office and still had concerning symptoms of angina and so he was recommended cardiac catheterization. Risks, benefits and alternatives were explained to him and he consented as such. He was brought to lab and prepped in the usual sterile fashion. Right radial artery was accessed using a modified Seldinger technique and placement of a 5/6 [place] slender sheath. This was easily aspirated and flushed. A JR-4 was advanced over a J-wire to the ascending aorta and across the aortic valve for measurement of left ventricular pressure. This was pulled back across the aortic valve showing no significant gradient of aortic stenosis. JR-4 was used for selective angiography of the right coronary artery. This was exchanged out for a JL-3.5 which was used for selective angiography of the left coronary artery. JL-3.5 was removed over a J-wire. A radial band was placed over the arteriotomy site for hemostasis. The patient left the photo lab manager cardiovascularly stable. FINDINGS Left main: Normal size vessel with adequate reflux and 20% lesion at the ostium. It bifurcates into an LAD and left circumflex. LAD: Normal-size vessel with mild tortuosity throughout. It appears to have diffuse 30% disease throughout. It gives off one major diagonal with 30% disease in the midportion. Left circumflex: Normal size vessel with mild tortuosity throughout. It gives off three obtuse marginals which are overall small with mild tortuosity and mild luminal irregularities. RCA: 100% occluded in the midportion. The posterior lateral branch and posterior descending artery are supplied by good collaterals from the left coronary system. LVEDP: 6. IMPRESSION 1. Chest pain with REPAIR ORDER CLERK of the RCA for medical management. 2. Coronary artery disease. RECOMMENDATIONS 1. Mr. Shahid appears to have a REPAIR ORDER CLERK of the RCA with collaterals supplied from the left coronary system. Because of this he will be recommended medical management. He has been started on antianginal medications before presenting for his cardiac catheterization. He will continue on these. 2. At this time he is most likely not a REPAIR ORDER CLERK candidate unless he has significant angina, continuing on his antianginals. Overall the midportion of the RCA would make it difficult as the occlusion is right at an RV branch. 3. He will follow up with me in the office. Thank you for allowing me to see Benito Shahid. If there are any questions, please do not hesitate to call. Mayank Oliva DO VGP/STU /8:18 PM /11:23 PM
== END 2017-05-22 16:20 | disposition home or self-care (01) ==
LOC: HDOC 07:53 → HDIC 07:54 → HDOC 16:20
PROVIDERS: ATTEND Nuclear Medicine Nuclear Cardiology
DX: I25.10 Atherosclerotic heart disease of native coronary artery without angina pectoris (principal); I71.4 Abdominal aortic aneurysm, without rupture; I77.9 Disorder of arteries and arterioles, unspecified; E78.5 Hyperlipidemia, unspecified; Z72.0 Tobacco use
CPT/HCPCS: 80048; 85025; 85610; 85730; 93005; 93458; 99152; C1769; C1893; J1644; J2250; J3010; Q9967